=== PATIENT | female | born 1960 | race Caucasian/White ===

== ENCOUNTER 2018-05-30 18:48 | Emergency (ER) | payer OTHER ==
[~2018-05-30] VITALS: Ht 154.9 cm; Wt 70.3 kg
[~2018-05-30 18:48] MED LIST: HYDROCODONE-AP1 EAC6 PO; RELPAX20 MG PO; TRAMADOL 50 MG50 MG PO
[2018-05-30 22:04] VITALS: BP 124/72
== END 2018-05-30 22:06 | disposition home or self-care (01) ==
LOC: ER 18:48
DX: R51 Headache (principal); F32.9 Major depressive disorder, single episode, unspecified; Z87.442 Personal history of urinary calculi; Z90.89 Acquired absence of other organs; Z88.5 Allergy status to narcotic agent; Z88.7 Allergy status to serum and vaccine

== ENCOUNTER 2020-01-02 15:11 | Emergency (ER) | payer OTHER ==
[~2020-01-02] VITALS: Ht 154.9 cm; Wt 72.6 kg
[2020-01-02] MEDS ORDERED: SUMATRIPTAN SUC50 MG PO (15:44)
[2020-01-02 18:02] VITALS: BP 118/76
== END 2020-01-02 18:02 | disposition home or self-care (01) ==
LOC: ER 15:11
DX: G43.909 Migraine, unspecified, not intractable, without status migrainosus (principal); Z79.899 Other long term (current) drug therapy; Z88.5 Allergy status to narcotic agent; Z88.8 Allergy status to other drugs, medicaments and biological substances